=== PATIENT | female | born 1960 | race Caucasian/White ===

== ENCOUNTER → 2016-10-14 | Outpatient (CLI) | payer BC ==
[~2016-10-14] MED LIST: EFFEXOR75 MG; FLOMAX0.4 MG PO; HYDROCODONE BIT1 T11 PO; KEFLEX500 MG PO; VICODIN 5/500 505 MG PO; ZOLOFT25 MG; Zofran4 MG PO
[2016-10-14 12:03] LABS: BASO # 0.1 10*3/uL (0.0-0.1); BASO % 0.8 % (0.0-1.0); EOS # 0.2 10*3/uL (0.0-0.4); EOS % 2.6 % (1.0-4.0); HEMATOCRIT 44.7 % (37.0-47.0); HEMOGLOBIN 14.5 g/dl (12.0-16.0); LYMPH # 2.1 10*3/uL (1.3-4.4); LYMPH % 25.6 % (27.0-41.0); MEAN CELL VOLUME 90.5 fl (81.0-99.0); MEAN CORPUSCULAR HGB 29.4 pg (27.0-31.0); MEAN CORPUSCULAR HGB CONC 32.4 g/dl (33.0-37.0); MEAN PLATELET VOLUME 10.9 fl (9.6-12.3); MONO # 0.8 10*3/uL (0.1-1.0); MONO % 9.4 % (3.0-9.0); NEUT # 5.1 10*3/uL (2.3-7.9); NEUT % 61.4 % (47.0-73.0); PLATELET COUNT AUTOMATED 232 10*3/uL (130-400); RED BLOOD COUNT 4.94 10*6/uL (4.10-5.10); WHITE BLOOD COUNT 8.4 10*3/uL (4.8-10.8)
[2016-10-14 12:30] LABS: ALBUMIN 4.1 gm/dl (3.1-4.5); BILIRUBIN, DIRECT 0.2 mg/dL (0.0-0.2); BILIRUBIN, TOTAL 1.1 mg/dl (0.2-1.0); BUN 16 mg/dl (7-24); CARBON DIOXIDE 32 mmol/L (21-32); CHLORIDE 102 mmol/L (98-107); CHOLESTEROL 210 mg/dL (<200); EST GLOM FILT AFRICAN AMERICAN > 60 ml/min; GLUCOSE 97 mg/dL (65-99); PHOSPHOROUS 2.9 mg/dL (2.5-4.9); POTASSIUM 4.6 mmol/L (3.5-5.1); SGOT/AST 27 IU/L (3-35); SGPT/ALT 24 U/L (12-78); SODIUM 144 mmol/L (136-145); TOTAL PROTEIN 7.6 gm/dL (6.4-8.2); TRIGLYCERIDES 176 mg/dl (<150); VLDL CHOLESTEROL 35 mg/dL (6-40)
[2016-10-14 12:31] LABS: ALKALINE PHOSPHATASE 112 U/L (45-117); HDL CHOLESTEROL 59 mg/dl (40-60); LDL CHOLESTEROL 116 mg/dL (9-159)
== END | disposition home or self-care (01) ==
LOC: LAB 11:36
PROVIDERS: Internal Medicine
DX: I10 Essential (primary) hypertension (principal); E78.5 Hyperlipidemia, unspecified

== ENCOUNTER → 2017-08-11 | Outpatient (CLI) | payer BC ==
[2017-08-11 13:22] LABS: BASO # 0.1 10*3/uL (0.0-0.1); BASO % 0.9 % (0.0-1.0); EOS # 0.3 10*3/uL (0.0-0.4); EOS % 3.4 % (1.0-4.0); HEMATOCRIT 44.4 % (37.0-47.0); HEMOGLOBIN 14.4 g/dl (12.0-16.0); LYMPH # 2.1 10*3/uL (1.3-4.4); LYMPH % 26.2 % (27.0-41.0); MEAN CELL VOLUME 90.8 fl (81.0-99.0); MEAN CORPUSCULAR HGB 29.4 pg (27.0-31.0); MEAN CORPUSCULAR HGB CONC 32.4 g/dl (33.0-37.0); MEAN PLATELET VOLUME 10.8 fl (9.6-12.3); MONO # 0.8 10*3/uL (0.1-1.0); MONO % 10.3 % (3.0-9.0); NEUT # 4.7 10*3/uL (2.3-7.9); NEUT % 58.8 % (47.0-73.0); PLATELET COUNT AUTOMATED 247 10*3/uL (130-400); RED BLOOD COUNT 4.89 10*6/uL (4.10-5.10); RED CELL DISTRI WIDTH 13.4 % (0-14.5); WHITE BLOOD COUNT 7.9 10*3/uL (4.8-10.8)
[2017-08-11 13:43] LABS: ALBUMIN 3.9 gm/dl (3.1-4.5); ALKALINE PHOSPHATASE 118 U/L (45-117); BILIRUBIN, DIRECT < 0.1 mg/dL (0.0-0.2); BUN 18 mg/dl (7-24); CHLORIDE 102 mmol/L (98-107); CHOLESTEROL 257 mg/dL (<200); CREATININE 1.01 mg/dL (0.55-1.02); HDL CHOLESTEROL 54 mg/dl (40-60); LDL CHOLESTEROL 170 mg/dL (9-159); PHOSPHOROUS 1.9 mg/dL (2.5-4.9); POTASSIUM 4.6 mmol/L (3.5-5.1); SGOT/AST 18 IU/L (3-35); SGPT/ALT 21 U/L (12-78); SODIUM 141 mmol/L (136-145); TOTAL PROTEIN 7.5 gm/dL (6.4-8.2); TRIGLYCERIDES 167 mg/dl (<150); VLDL CHOLESTEROL 33 mg/dL (6-40)
== END | disposition home or self-care (01) ==
LOC: LAB 12:33
PROVIDERS: Internal Medicine
DX: I10 Essential (primary) hypertension (principal); E78.5 Hyperlipidemia, unspecified

== ENCOUNTER → 2020-07-04 | Outpatient (CLI) | payer BC ==
[2020-07-04 10:51] LABS: ALBUMIN 3.6 gm/dl (3.1-4.5); CREATININE 1.41 mg/dL (0.55-1.02); POTASSIUM 4.3 mmol/L (3.5-5.1); URIC ACID 8.5 mg/dL (2.6-6.0)
[2020-07-04 10:59] LABS: FREE T4 0.99 ng/dl (0.76-1.46); THYROID STIM HORMONE (HS) 2.63 uIU/ml (0.358-4.75)
[2020-07-04 11:11] LABS: VITAMIN D, 25-HYDROXY 16.4 ng/mL (30-100)
[2020-07-04 11:12] LABS: PTH INTACT 134.4 pg/mL (18.5-88.0)
== END | disposition home or self-care (01) ==
LOC: LAB 09:24
PROVIDERS: ATTEND Internal Medicine
DX: I10 Essential (primary) hypertension (principal); E89.0 Postprocedural hypothyroidism; N20.0 Calculus of kidney; E55.9 Vitamin D deficiency, unspecified; E21.3 Hyperparathyroidism, unspecified

== ENCOUNTER → 2020-07-05 | Outpatient (CLI) | payer BC | END | disposition home or self-care (01) | LOC: LAB 01:41 | PROVIDERS: ATTEND Internal Medicine | DX: E21.3 Hyperparathyroidism, unspecified (principal) ==

== ENCOUNTER → 2020-10-13 | Outpatient (CLI) | payer BC ==
[2020-10-13 12:01] LABS: ALBUMIN 3.3 gm/dl (3.1-4.5); BUN 17 mg/dl (7-24); CHLORIDE 109 mmol/L (98-107); CREATININE 1.05 mg/dL (0.55-1.02); FREE T4 0.89 ng/dl (0.76-1.46); POTASSIUM 4.1 mmol/L (3.5-5.1); SODIUM 142 mmol/L (136-145)
[2020-10-13 12:42] LABS: VITAMIN D, 25-HYDROXY 25.3 ng/mL (30-100)
[2020-10-13 12:43] LABS: PTH INTACT 133.6 pg/mL (18.5-88.0)
== END | disposition home or self-care (01) ==
LOC: LAB 10:55
PROVIDERS: ATTEND Internal Medicine
DX: I10 Essential (primary) hypertension (principal); E55.9 Vitamin D deficiency, unspecified; E89.0 Postprocedural hypothyroidism; E21.3 Hyperparathyroidism, unspecified; N20.0 Calculus of kidney

== ENCOUNTER → 2020-10-14 | Outpatient (CLI) | payer BC | END | disposition home or self-care (01) | LOC: LAB 13:07 | PROVIDERS: ATTEND Internal Medicine | DX: I10 Essential (primary) hypertension (principal); E21.3 Hyperparathyroidism, unspecified; N20.0 Calculus of kidney; E55.9 Vitamin D deficiency, unspecified; E89.0 Postprocedural hypothyroidism ==

== ENCOUNTER → 2021-01-02 | Outpatient (CLI) | payer BC ==
[2021-01-02 13:47] LABS: ALBUMIN 3.3 gm/dl (3.1-4.5); BUN 16 mg/dl (7-24); CHLORIDE 107 mmol/L (98-107); CHOLESTEROL 200 mg/dL (<200); CREATININE 1.04 mg/dL (0.55-1.02); LDL CHOLESTEROL 98 mg/dL (9-159); POTASSIUM 4.8 mmol/L (3.5-5.1); SGOT/AST 23 IU/L (3-35); SGPT/ALT 29 U/L (12-78); SODIUM 142 mmol/L (136-145); TOTAL PROTEIN 7.2 gm/dL (6.4-8.2); TRIGLYCERIDES 299 mg/dl (<150)
[2021-01-02 13:48] LABS: ALKALINE PHOSPHATASE 143 U/L (45-117)
== END | disposition home or self-care (01) ==
LOC: LAB 13:03
PROVIDERS: Internal Medicine; ATTEND Otolaryngology
DX: E78.2 Mixed hyperlipidemia (principal); I10 Essential (primary) hypertension

== ENCOUNTER → 2021-02-06 | Outpatient (CLI) | payer BC ==
[2021-02-06 12:57] LABS: ALBUMIN 3.4 gm/dl (3.1-4.5); CREATININE 1.23 mg/dL (0.55-1.02); FREE T4 0.98 ng/dl (0.76-1.46); POTASSIUM 4.9 mmol/L (3.5-5.1)
[2021-02-06 13:04] LABS: THYROID STIM HORMONE (HS) 1.69 uIU/ml (0.358-4.75)
[2021-02-06 13:19] LABS: PTH INTACT 36.9 pg/mL (18.5-88.0); VITAMIN D, 25-HYDROXY 45.5 ng/mL (30-100)
== END | disposition home or self-care (01) ==
LOC: LAB 11:15
PROVIDERS: ATTEND Internal Medicine
DX: E21.3 Hyperparathyroidism, unspecified (principal); E89.0 Postprocedural hypothyroidism; E55.9 Vitamin D deficiency, unspecified

== ENCOUNTER → 2021-03-09 | Outpatient (CLI) | payer BC ==
[2021-03-09 09:53] LABS: BASO # 0.1 10*3/uL (0.0-0.1); BASO % 0.9 % (0.0-1.0); EOS # 0.4 10*3/uL (0.0-0.4); EOS % 3.9 % (1.0-4.0); HEMATOCRIT 43.7 % (37.0-47.0); LYMPH # 2.8 10*3/uL (1.3-4.4); MEAN CELL VOLUME 95.4 fl (81.0-99.0); MEAN CORPUSCULAR HGB 29.7 pg (27.0-31.0); MEAN CORPUSCULAR HGB CONC 31.1 g/dl (33.0-37.0); MEAN PLATELET VOLUME 10.6 fl (9.6-12.3); MONO # 0.9 10*3/uL (0.1-1.0); MONO % 9.6 % (3.0-9.0); NEUT # 4.9 10*3/uL (2.3-7.9); NEUT % 54.3 % (47.0-73.0); PLATELET COUNT AUTOMATED 268 10*3/uL (130-400); RED BLOOD COUNT 4.58 10*6/uL (4.10-5.10); RED CELL DISTRI WIDTH 13.5 % (0-14.5); WHITE BLOOD COUNT 9.1 10*3/uL (4.8-10.8)
[2021-03-09 10:12] LABS: ALBUMIN 3.4 gm/dl (3.1-4.5); CREATININE 1.24 mg/dL (0.55-1.02); POTASSIUM 4.8 mmol/L (3.5-5.1)
== END | disposition home or self-care (01) ==
LOC: LAB 09:12
PROVIDERS: ATTEND Internal Medicine
DX: I95.1 Orthostatic hypotension (principal); N17.8 Other acute kidney failure

== ENCOUNTER → 2021-09-11 | Outpatient (CLI) | payer BC ==
[2021-09-11 14:55] LABS: CREATININE 1.18 mg/dL (0.55-1.02); FREE T4 0.94 ng/dl (0.76-1.46); POTASSIUM 4.2 mmol/L (3.5-5.1); URIC ACID 5.7 mg/dL (2.6-6.0)
[2021-09-11 15:01] LABS: THYROID STIM HORMONE (HS) 2.43 uIU/ml (0.358-4.75)
== END | disposition home or self-care (01) ==
LOC: LAB 14:13
PROVIDERS: ATTEND Internal Medicine
DX: N20.0 Calculus of kidney (principal); E21.3 Hyperparathyroidism, unspecified; E83.52 Hypercalcemia; E55.9 Vitamin D deficiency, unspecified; E89.0 Postprocedural hypothyroidism

== ENCOUNTER → 2022-02-25 | Outpatient (CLI) | payer BC | END | disposition home or self-care (01) | LOC: RAD 07:41 | PROVIDERS: ATTEND Internal Medicine | DX: M81.0 Age-related osteoporosis without current pathological fracture (principal) ==

== ENCOUNTER → 2022-06-25 | Outpatient (CLI) | payer BC ==
[2022-06-25 10:27] LABS: FREE T4 1.26 ng/dl (0.89-1.76); POTASSIUM 4.5 mmol/L (3.4-5.1); THYROID STIM HORMONE (HS) 4.011 uIU/ml (0.550-4.780); TOTAL PROTEIN 7.2 gm/dL (6.0-8.0); URIC ACID 6.2 mg/dL (3.1-7.8)
[2022-06-25 10:40] LABS: VITAMIN D, 25-HYDROXY 37.8 ng/mL (30-100)
== END | disposition home or self-care (01) ==
LOC: LAB 09:25
PROVIDERS: ATTEND Internal Medicine
DX: N18.31 Chronic kidney disease, stage 3a (principal); E89.0 Postprocedural hypothyroidism; E55.9 Vitamin D deficiency, unspecified; N20.0 Calculus of kidney; E21.3 Hyperparathyroidism, unspecified

== ENCOUNTER → 2022-11-29 | Outpatient (CLI) | payer BC ==
[2022-11-29 08:57] LABS: ALKALINE PHOSPHATASE 105 U/L (46-116); BUN 14 mg/dl (9-23); CHLORIDE 107 mmol/L (98-107); CHOLESTEROL 182 mg/dL (<200); LDL CHOLESTEROL 90 mg/dL (9-159); POTASSIUM 4.5 mmol/L (3.4-5.1); SGPT/ALT 16 U/L (10-49); TRIGLYCERIDES 216 mg/dl (<150); URIC ACID 5.3 mg/dL (3.1-7.8)
[2022-11-29 09:00] LABS: VITAMIN D, 25-HYDROXY 47.2 ng/mL (30-100)
[2022-11-29 09:01] LABS: FREE T4 1.18 ng/dl (0.89-1.76)
== END | disposition home or self-care (01) ==
LOC: LAB 01:16
PROVIDERS: Internal Medicine; ATTEND Internal Medicine
DX: E78.2 Mixed hyperlipidemia (principal); E79.0 Hyperuricemia without signs of inflammatory arthritis and tophaceous disease; I10 Essential (primary) hypertension; E78.5 Hyperlipidemia, unspecified

== ENCOUNTER → 2023-04-29 | Outpatient (CLI) | payer BC ==
[2023-04-29 11:03] LABS: ALKALINE PHOSPHATASE 96 U/L (46-116); BUN 14 mg/dl (9-23); CHLORIDE 108 mmol/L (98-107); CHOLESTEROL 208 mg/dL (<200); FREE T4 1.14 ng/dl (0.89-1.76); LDL CHOLESTEROL 86 mg/dL (9-159); POTASSIUM 4.7 mmol/L (3.4-5.1); SGPT/ALT 15 U/L (5-49); TOTAL PROTEIN 7.1 gm/dL (6.0-8.0); TRIGLYCERIDES 374 mg/dl (<150); URIC ACID 4.6 mg/dL (3.1-7.8)
== END | disposition home or self-care (01) ==
LOC: LAB 09:50
PROVIDERS: ATTEND Internal Medicine
DX: N18.31 Chronic kidney disease, stage 3a (principal); E55.9 Vitamin D deficiency, unspecified; E89.0 Postprocedural hypothyroidism; N20.0 Calculus of kidney

== ENCOUNTER → 2023-07-02 | Day surgery (SDC) | payer BC ==
[~2023-07-02] VITALS: Ht 170.1 cm; Wt 81.6 kg
[~2023-07-02] MED LIST changes: +BALANCED SALT IRRIG SOLN NO.2 1.13 ML,Lidocaine Hydrochloride 0.37 ML,EPINEPHrine Hydro... IV SCH; +BISOPROLOL FUMA10 MG PO; +Balanced Salt Solution 500 ML OPH SCH; +Cefuroxime Sodium 5 MG in BALANCED SALT IRRIG SOLN NO.2 0.5 ML,SYRINGE, DISPOSABLE, 10 ... IO SCH; +LEVOTHYROXINE75 MCG PO; +LIOTHYRONINE SO5 MCG PO; +Midazolam Hydrochloride 5 MG/5 ML VIAL IV ONE; +OFLOXACIN 0.3% 5 ML BOTTLE ONE; +OFLOXACIN 0.3% 5 ML BOTTLE OPH SCH; +PHENYLEPHRINE/KETOROLAC 4 ML in Balanced Salt Solution 500 ML OPH SCH; +POVIDONE IODINE 5% OPHTHALMIC 30 ML BOTTLE OPH ONE; +POVIDONE IODINE 5% OPHTHALMIC 30 ML BOTTLE OPH SCH; +PRAVASTATIN SOD20 MG PO; +Phenylephrine Hydrochloride 2 ML BOT OPH ONE; +Phenylephrine Hydrochloride 2 ML BOT OPH SCH; +Proparacaine Hydrochloride 15 ML BOT OPH ONE; +Proparacaine Hydrochloride 15 ML BOT OPH SCH; +SODIUM CHLORIDE 0.9% 1,000 ML IV SCH; +TETRACAINE HCL 10 DROP BOT OPH SCH; +TROPICAMIDE 3 ML BOT OPH ONE; +TROPICAMIDE 3 ML BOT OPH SCH; +Tetracaine Hydrochloride 0.5% 4 ML BOT OPH ONE; +Tetracaine Hydrochloride 0.5% 4 ML BOT OPH SCH; +ZYLOPRIM100 MG PO; +hydrALAZINE hydrochloride 20 MG/ML VIAL IV ONE; +prednisoLONE acetate 1% OPHTHALMIC 5 ML BOT OPH ONE; +prednisoLONE acetate 1% OPHTHALMIC 5 ML BOT OPH SCH
[2023-07-02 10:00] VITALS: BP 136/71
[2023-07-02 13:06] VITALS: BP 121/65
[2023-07-02 13:15] VITALS: BP 106/64
[2023-07-02 13:31] VITALS: BP 103/77
== END | disposition home or self-care (01) ==
LOC: SDC 06-30 08:45
PROVIDERS: ATTEND Ophthalmology
DX: H25.812 Combined forms of age-related cataract, left eye (principal); N18.9 Chronic kidney disease, unspecified; E78.00 Pure hypercholesterolemia, unspecified; F32.A Depression, unspecified; E03.9 Hypothyroidism, unspecified; Z87.442 Personal history of urinary calculi; Z90.89 Acquired absence of other organs; Z98.891 History of uterine scar from previous surgery; Z90.710 Acquired absence of both cervix and uterus; Z98.890 Other specified postprocedural states; Z79.890 Hormone replacement therapy; Z79.899 Other long term (current) drug therapy; Z88.5 Allergy status to narcotic agent; Z91.011 Allergy to milk products; Z88.8 Allergy status to other drugs, medicaments and biological substances

== ENCOUNTER → 2023-08-27 | Day surgery (SDC) | payer BC ==
[~2023-08-27] VITALS: Ht 170.1 cm; Wt 81.6 kg
[~2023-08-27] MED LIST changes: -BALANCED SALT IRRIG SOLN NO.2 1.13 ML,Lidocaine Hydrochloride 0.37 ML,EPINEPHrine Hydro... IV SCH; +Midazolam Hydrochloride 2 MG/2 ML VIAL IV ONE; -Midazolam Hydrochloride 5 MG/5 ML VIAL IV ONE; -PHENYLEPHRINE/KETOROLAC 4 ML in Balanced Salt Solution 500 ML OPH SCH; -TETRACAINE HCL 10 DROP BOT OPH SCH; -hydrALAZINE hydrochloride 20 MG/ML VIAL IV ONE
[2023-08-27 11:44] VITALS: BP 111/59
[2023-08-27 13:04] VITALS: BP 104/70
[2023-08-27 13:19] VITALS: BP 105/68
[2023-08-27 13:34] VITALS: BP 115/59
== END | disposition home or self-care (01) ==
LOC: SDC 08-22 12:30
PROVIDERS: ATTEND Ophthalmology
DX: H25.11 Age-related nuclear cataract, right eye (principal); E78.00 Pure hypercholesterolemia, unspecified; E03.9 Hypothyroidism, unspecified; F32.A Depression, unspecified; Z87.442 Personal history of urinary calculi; Z90.89 Acquired absence of other organs; Z90.710 Acquired absence of both cervix and uterus; Z98.891 History of uterine scar from previous surgery; Z98.890 Other specified postprocedural states; Z79.890 Hormone replacement therapy; Z79.899 Other long term (current) drug therapy; Z88.5 Allergy status to narcotic agent; Z88.8 Allergy status to other drugs, medicaments and biological substances

== ENCOUNTER → 2023-10-08 | Outpatient (CLI) | payer BC ==
[~2023-10-08] MED LIST changes: -Balanced Salt Solution 500 ML OPH SCH; -Cefuroxime Sodium 5 MG in BALANCED SALT IRRIG SOLN NO.2 0.5 ML,SYRINGE, DISPOSABLE, 10 ... IO SCH; -Midazolam Hydrochloride 2 MG/2 ML VIAL IV ONE; -OFLOXACIN 0.3% 5 ML BOTTLE ONE; -OFLOXACIN 0.3% 5 ML BOTTLE OPH SCH; -POVIDONE IODINE 5% OPHTHALMIC 30 ML BOTTLE OPH ONE; -POVIDONE IODINE 5% OPHTHALMIC 30 ML BOTTLE OPH SCH; -Phenylephrine Hydrochloride 2 ML BOT OPH ONE; -Phenylephrine Hydrochloride 2 ML BOT OPH SCH; -Proparacaine Hydrochloride 15 ML BOT OPH ONE; -Proparacaine Hydrochloride 15 ML BOT OPH SCH; -SODIUM CHLORIDE 0.9% 1,000 ML IV SCH; -TROPICAMIDE 3 ML BOT OPH ONE; -TROPICAMIDE 3 ML BOT OPH SCH; -Tetracaine Hydrochloride 0.5% 4 ML BOT OPH ONE; -Tetracaine Hydrochloride 0.5% 4 ML BOT OPH SCH; -prednisoLONE acetate 1% OPHTHALMIC 5 ML BOT OPH ONE; -prednisoLONE acetate 1% OPHTHALMIC 5 ML BOT OPH SCH
[2023-10-08 10:12] LABS: BASO # 0.1 10*3/uL (0.0-0.1); EOS # 0.2 10*3/uL (0.0-0.4); EOS % 2.6 % (1.0-4.0); HEMATOCRIT 44.6 % (37.0-47.0); LYMPH % 33.9 % (27.0-41.0); MEAN CELL VOLUME 95.5 fl (81.0-99.0); MEAN CORPUSCULAR HGB CONC 31.4 g/dl (33.0-37.0); MEAN PLATELET VOLUME 9.9 fl (9.6-12.3); MONO # 0.9 10*3/uL (0.1-1.0); MONO % 10.6 % (3.0-9.0); NEUT # 4.5 10*3/uL (2.3-7.9); NEUT % 51.6 % (47.0-73.0); PLATELET COUNT AUTOMATED 252 10*3/uL (130-400); RED BLOOD COUNT 4.67 10*6/uL (4.10-5.10); RED CELL DISTRI WIDTH 13.6 % (0-14.5); WHITE BLOOD COUNT 8.8 10*3/uL (4.8-10.8)
[2023-10-08 10:38] LABS: ALKALINE PHOSPHATASE 95 U/L (46-116); BUN 15 mg/dl (9-23); CHLORIDE 105 mmol/L (98-107); CHOLESTEROL 210 mg/dL (<200); LDL CHOLESTEROL 122 mg/dL (9-159); POTASSIUM 4.1 mmol/L (3.4-5.1); SGPT/ALT 19 U/L (5-49); TRIGLYCERIDES 197 mg/dl (<150); URIC ACID 5.8 mg/dL (3.1-7.8)
[2023-10-08 10:40] LABS: FREE T4 1.07 ng/dl (0.89-1.76); POTASSIUM 4.3 mmol/L (3.4-5.1)
== END | disposition home or self-care (01) ==
LOC: LAB 09:53
PROVIDERS: Internal Medicine; ATTEND Internal Medicine
DX: E89.0 Postprocedural hypothyroidism (principal); E83.52 Hypercalcemia

== ENCOUNTER → 2024-02-28 | Outpatient (CLI) | payer BC ==
[2024-02-28 10:07] LABS: BASO # 0.1 10*3/uL (0.0-0.1); BASO % 1.1 % (0.0-1.0); EOS # 0.5 10*3/uL (0.0-0.4); EOS % 3.9 % (1.0-4.0); HEMATOCRIT 43.5 % (37.0-47.0); LYMPH # 2.9 10*3/uL (1.3-4.4); MEAN CORPUSCULAR HGB CONC 32.6 g/dl (33.0-37.0); MEAN PLATELET VOLUME 9.8 fl (9.6-12.3); MONO # 1.4 10*3/uL (0.1-1.0); MONO % 11.8 % (3.0-9.0); NEUT # 7.1 10*3/uL (2.3-7.9); NEUT % 58.9 % (47.0-73.0); PLATELET COUNT AUTOMATED 268 10*3/uL (130-400); RED BLOOD COUNT 4.73 10*6/uL (4.10-5.10); RED CELL DISTRI WIDTH 13.7 % (0-14.5)
[2024-02-28 10:50] LABS: POTASSIUM 4.5 mmol/L (3.4-5.1); TOTAL PROTEIN 7.2 gm/dL (6.0-8.0); URIC ACID 5.8 mg/dL (3.1-7.8)
== END | disposition home or self-care (01) ==
LOC: LAB 09:23
PROVIDERS: ATTEND Internal Medicine
DX: E78.2 Mixed hyperlipidemia (principal); I10 Essential (primary) hypertension; E79.0 Hyperuricemia without signs of inflammatory arthritis and tophaceous disease

== ENCOUNTER → 2024-03-20 | Outpatient (CLI) | payer BC ==
[2024-03-20 09:16] LABS: FREE T4 1.22 ng/dl (0.89-1.76); POTASSIUM 4.8 mmol/L (3.4-5.1); TOTAL PROTEIN 7.4 gm/dL (6.0-8.0); URIC ACID 6.4 mg/dL (3.1-7.8)
[2024-03-20 10:21] LABS: VITAMIN D, 25-HYDROXY 52.2 ng/mL (30-100)
[2024-03-24 07:04] LABS: THYROID STIM IMMUNOGLOBULIN <0.10 IU/L (0.00-0.55)
== END | disposition home or self-care (01) ==
LOC: LAB 08:10
PROVIDERS: ATTEND Internal Medicine
DX: E55.9 Vitamin D deficiency, unspecified (principal); E21.3 Hyperparathyroidism, unspecified; M25.50 Pain in unspecified joint; N20.0 Calculus of kidney; E78.5 Hyperlipidemia, unspecified; H05.20 Unspecified exophthalmos